=== PATIENT | female | born 1960 | race African-American/Black ===

== ENCOUNTER 2017-02-03 17:26 | Emergency (ER) | payer OTHER ==
[~2017-02-03] VITALS: Ht 167.6 cm; Wt 74.8 kg
[~2017-02-03 17:26] MED LIST: ABILIFY15 MG PO; ALLERGY & CONG1 EACH PO; BACTRIM DS TAB1 EACH PO; BENADRYL ALLERG25 MG PO; BUTRANS1 EAC1; CARBAMAZEPINE400 M1 PO; CARBAMAZEPINE400 MG PO; CLONAZEPAM 0.50.5 M1 PO; CLONAZEPAM PO; COLACE100 MG PO; COZAAR 25 MG TA25 M1 PO; CYMBALTA30 MG PO; CYMBALTA60 MG PO; FEXOFENADINE-P1 EAC1 PO; FISH OIL 1,001000 M1 PO; HYDROCHLOROTH12.5 M2 PO; HYDROCODON-ACE1 EAC7; HYDROCODONE-APA1 TA1 PO; HYDROXYZINE PAM50 MG PO; IBUPROFEN 800800 M1; IBUPROFEN 800800 M1 PO; LATUDA60 MG PO; LEVOTHYROXIN0.025 MG; LEVOTHYROXIN0.025 MG PO; LINZESS145 MCG PO; LORATADINE-D T1 EAC1; MECLIZINE 25 MG25 M1 PO; MINIPRESS2 MG; MOBIC7.5 MG PO; NEURONTIN 300300 M1 PO; NEURONTIN 300M300 M2 PO; NORCO 5-325 TA1 EACH PO; OMEPRAZOLE 20 M20 MG PO; PEPCID40 MG PO; PERCOCET 5-3251 EACH; PRAZOSIN HCL2 MG PO; PREDNISONE 20 M20 MG PO; PREMARIN0.45 MG PO; PRENATAL MULTI1 EAC2 PO; RANITIDINE 150150 M1; REQUIP0.5 MG; ROPINIROLE HCL2 MG PO; SKELAXIN 800 M800 M1; SKELAXIN 800 M800 M1 PO; SYMBICORT160 MCG/4. INH; TEGRETOL XR100 MG PO; TESSALON200 MG PO; TOPAMAX 100 MG100 MG PO; TOPAMAX200 MG; TOPAMAX200 MG PO; TOPAMAX50 MG; TOPIRAGEN50 MG PO; TRAZODONE 150150 M1 PO; VIMPAT150 MG PO; VIMPAT50 MG PO; VITAMIN D 5050000 I1 PO; VOL-TAB RX TAB1 EACH PO; ZANTAC 150MG T150 M1 PO; ZPAK PO
[2017-02-03] MEDS ORDERED: SINGULAIR 10 MG10 M1 PO (17:33)
[2017-02-03] MEDS ORDERED: IBUPROFEN 600600 M1 PO (18:25)
== END 2017-02-03 18:45 | disposition home or self-care (01) ==
LOC: ER 17:26
DX: S09.90XA Unspecified injury of head, initial encounter (principal); M79.7 Fibromyalgia; M19.90 Unspecified osteoarthritis, unspecified site; Z90.49 Acquired absence of other specified parts of digestive tract; Z90.710 Acquired absence of both cervix and uterus; J45.909 Unspecified asthma, uncomplicated; G43.909 Migraine, unspecified, not intractable, without status migrainosus; F32.9 Major depressive disorder, single episode, unspecified; F41.9 Anxiety disorder, unspecified; G89.29 Other chronic pain; Z88.1 Allergy status to other antibiotic agents; Z88.5 Allergy status to narcotic agent; Z87.891 Personal history of nicotine dependence; W22.8XXA Striking against or struck by other objects, initial encounter; Y93.89 Activity, other specified; Y92.89 Other specified places as the place of occurrence of the external cause; Y99.8 Other external cause status